=== PATIENT | male | born 1965 | race Caucasian/White ===

== ENCOUNTER 2022-06-06 14:43 | Emergency (ER) | payer MEDICAID ==
[~2022-06-06] VITALS: Ht 170.2 cm; Wt 107.5 kg
[2022-06-06 14:51] VITALS: BP 139/81
--- NOTE | 2022-06-06 15:00 | NUR ---
57/M PRESENTS TO ED WITH C/O RIGHT BIG TOE PAIN X1 WEEK. STATES HE DROPPED A TOOL ONTO HIS TOE AND STATES THE NAIL IS COMING OFF NOW.
[2022-06-06] MEDS ORDERED: IBUPROFEN 600 MG TAB PO ONE (15:05)
[2022-06-06] MEDS ORDERED: IBUP-2213 PO (15:27)
--- NOTE | 2022-06-06 15:39 | NUR ---
Patient discharged with v/s stable. Written and verbal after care instructions ABOUT SUBUNGUAL HEMATOMA given and explained. Patient alert, oriented and verbalized understanding of instructions. Ambulatory with steady gait. All questions addressed prior to discharge. ID band removed. Patient advised to follow up with PMD. Rx of MOTRIN given. Patient educated on indication of medication including possible reaction and side effects. Opportunity to ask questions provided and answered.
== END 2022-06-06 15:39 | disposition home or self-care (01) ==
LOC: MED 14:43
DX: S90.212A Contusion of left great toe with damage to nail, initial encounter (principal); X58.XXXA Exposure to other specified factors, initial encounter; Y93.89 Activity, other specified; Y92.89 Other specified places as the place of occurrence of the external cause; Y99.8 Other external cause status
CPT/HCPCS: 11740; 73630; 99284

== ENCOUNTER 2023-02-28 00:12 | Emergency (ER) | payer MEDICAID ==
[~2023-02-28] VITALS: Ht 170.2 cm; Wt 83.9 kg
[~2023-02-28 00:12] MED LIST: IBUP-2213 PO
[2023-02-28 00:15] VITALS: BP 137/77; PULSE 68; RESP 17; TEMP 97.5; O2SAT 98
[2023-02-28 01:50] LABS: BILIRUBIN,URINE NEGATIVE (NEGATIVE); BLOOD, URINE TRACE-I (NEGATIVE); COLOR,URINE YELLOW (YELLOW); LEUKOCYTE ESTERASE ,URINE NEGATIVE (NEGATIVE); NITRITE, URINE NEGATIVE (NEGATIVE); PH,URINE 5.5 (5.0-9.0); PROTEIN,URINE NEGATIVE (NEGATIVE); UGLUCOSE NEGATIVE (NEGATIVE); UROBILINOGEN,URINE 0.2 EU/dL (0.2 - 1)
[2023-02-28 01:51] LABS: APPEARANCE,URINE SLIGHTLY CLOUDY (CLEAR)
[2023-02-28 01:52] LABS: BACTERIA,URINE OCCASSIONAL /HPF (None Seen); RBC,URINE 0-5 /HPF (0-5); SQUAMOUS EPITHELIAL CELL,UR 0-3 (FEW) /LPF (0-3 (FEW)); URINE AMORPHOUS URATE 1+ /HPF (None Seen); WBC,URINE NONE SEEN /HPF (0-5)
[2023-02-28] MEDS ORDERED: KETOROLAC 30 MG/ML VIAL IM ONE (02:15)
[2023-02-28 02:48] LABS: BASOPHILS # (AUTO) 0.1 K/uL (0.00-0.22); BASOPHILS % (AUTO) 0.7 % (0.0-2.0); EOSINOPHILS # (AUTO) 0.4 K/uL (0-0.4); EOSINOPHILS % (AUTO) 5.1 % (0.0-4.0); HEMATOCRIT 41.9 % (36-52); HEMOGLOBIN 14.3 g/dL (12.0-18.0); LYMPHOCYTES # (AUTO) 2.9 K/uL (2.0-11.5); MEAN CORPUSCULAR HEMOGLOBIN 31 pg (27-31); MEAN CORPUSCULAR HGB CONC 34 g/dL (33-37); MEAN CORPUSCULAR VOLUME 90.4 fL (80-94); MONOCYTES # (AUTO) 0.7 K/uL (0.8-1.0); MONOCYTES % (AUTO) 8.9 % (1.7-9.3); NEUTROPHILS # (AUTO) 3.9 K/uL (1.8-7.7); NEUTROPHILS % (AUTO) 49.3 % (42.2-75.2); PLATELET COUNT (AUTO) 200 K/uL (140-450); RED BLOOD CELL COUNT(AUTO) 4.63 MIL/uL (4.20-6.10); RED CELL DISTRIBUTION WIDTH 12.8 % (11.6-13.7); WHITE BLOOD COUNT (AUTO) 7.9 K/uL (4.8-10.8)
[2023-02-28 03:03] LABS: ANION GAP 12.5 (8-16); CALCIUM 8.4 mg/dL (8.5-10.1); CARBON DIOXIDE 25.3 mmol/L (21-32); CREATININE 0.9 mg/dL (0.6-1.3); POTASSIUM 3.8 mmol/L (3.5-5.1); TOTAL BILIRUBIN 0.6 mg/dL (0.0-1.0); TOTAL PROTEIN, SERUM 7.5 g/dL (6.4-8.2)
[2023-02-28 04:47] VITALS: BP 140/75; PULSE 66; RESP 17; TEMP 97.5; O2SAT 98
[2023-02-28] MEDS ORDERED: ACET-10509 PO (04:55)
[2023-02-28] MEDS ORDERED: CYCL-711 PO (04:55)
== END 2023-02-28 04:47 | disposition left against medical advice (07) ==
LOC: MED 00:12
DX: N20.1 Calculus of ureter (principal); Z98.890 Other specified postprocedural states; Z79.899 Other long term (current) drug therapy; Z79.1 Long term (current) use of non-steroidal anti-inflammatories (NSAID)
CPT/HCPCS: 36415; 74176; 80053; 81001; 85025; 99285; J1885